=== PATIENT | male | born 1955 | race Caucasian/White ===

== ENCOUNTER 2018-12-17 08:12 | Outpatient (REF) | payer OTHER, SELFPAY ==
[2018-12-17 12:43] LABS: ALT 23 U/L (12-78); AST 19 U/L (15-37); Albumin 3.4 g/dL (3.4-5.0); Alkaline Phosphatase 84 U/L (46-116); Anion Gap 7.7 mmol/L (3-11); BUN 13 mg/dL (7-18); Bilirubin, Total 0.3 mg/dL (0.2-1.0); CO2 31.3 mmol/L (21.0-32.0); CREATININE 0.94 mg/dL (0.70-1.30); Chloride 102 mmol/L (98-107); Glucose 108 mg/dL (70-100); Potassium 4.2 mmol/L (3.5-5.1); Sodium 141 mmol/L (136-145); Total Protein 7.5 g/dL (6.4-8.2)
[2018-12-17 14:29] LABS: Calculated LDL 102; Cholesterol 160 mg/dL (50-200); HDL Cholesterol 50 mg/dL (40-60); Triglyceride 42 mg/dL (30-150)
== END 2018-12-17 08:32 ==
LOC: NCHCN 08:12
PROVIDERS: PCP Nurse Practitioner Family; Visit Provider Nurse Practitioner Family
DX: Z00.00 Encounter for general adult medical examination without abnormal findings (principal); Z13.220 Encounter for screening for lipoid disorders; Z13.228 Encounter for screening for other metabolic disorders
CPT/HCPCS: 80053; 80061; 83721

== ENCOUNTER 2019-05-29 12:32 | Outpatient (REF) | payer OTHER, SELFPAY ==
[2019-06-02 13:11] LABS: Hepatitis C Ab w Rflx HCV PCR Negative (Negative)
== END 2019-05-29 12:52 ==
LOC: NCHCN 12:32
PROVIDERS: PCP Nurse Practitioner Family; Visit Provider Nurse Practitioner Family
DX: Z00.00 Encounter for general adult medical examination without abnormal findings (principal); Z11.59 Encounter for screening for other viral diseases
CPT/HCPCS: 86803

== ENCOUNTER 2019-07-22 15:24 | Observation (INO) | payer OTHER, SELFPAY ==
[2019-07-22] VITALS (10 sets, daily range): BP systolic 118–168; BP diastolic 73–85; PULSE 61–82; RESP 16–22; TEMP 36.1–36.6; O2SAT 95–100
--- NOTE | 2019-07-22 15:43 | ED.GENADUL_ITS ---
Discharge Plan Disposition Patient Disposition: [facility] INPATIENT Condition: Stable Discharge Details Chief Complaint: Abd Prob Clinical Impression: Strangulated femoral hernia Primary Care Provider: Desi Garcia ED Provider: Kevin Ferrer Home Meds and New Rx's Prescriptions: New hydrocodone-acetaminophen 5-325 mg tablet 1 - 2 tab PO Q4H PRN (Reason: pain) Qty: 20 RF: 0 Continued omeprazole 20 mg Capsule,Delayed Release(Dr/Ec) 20 mg PO DAILY RF: 0 albuterol sulfate [ProAir HFA] 90 mcg/actuation Hfa Aerosol Inhaler 2 puff INHALATION PRN PRNRF: 0 fluticasone propion-salmeterol 250-50 mcg/dose Blister With Device 1 inh INHALATION BID PRNRF: 0 ondansetron 4 mg Tablet,Disintegrating 4 mg PO Q6H PRNRF: 0 Medical Decision Making 64 yo male with hx of gerd and per pt 40 years ago had left inguinal hernia repair comes in with chief complaint of left inguinal pain. He was doing heavy lifting yesterday and had pain but this increased today. WEnt to pcp's office who sent him here after noting large inguinal hernia. Denies fevers, chills, testicle pain or dysuria. Has no abodminal tenderness or distention. HAs 3cm mass that's tender without erythema or warmth in left mid inguinal area. Suspect hernia, unable to reduce at bedside. Will obtain labs and obtain imaging and reassess. labs unremarkable, pt has both left femoral and inguinal hernias with femoral being the start of sbo. Spoke with Dr. Corrales who is planning on taking pt to the OR Differential Diagnosis Differential Diagnosis: hernia, incarceration, strangulation Imaging Data Radiologic Study: Attestation: I personally reviewed and interpreted this imaging study as follows: Imaging: CT Scan Radiologist's impression: IMPRESSION: 1. There are dilated loops of fluid-filled small bowel which enter a left femoral hernia. The exiting bowel is contracted in appearance (transition point series 4, image 33). Findings are most consistent with a small-bowel obstruction related to this hernia. There is slight haziness to the fat within the hernia sac with respect to the adjacent inguinal hernia sac fat. This can sometimes be seen with incarceration or strangulation. There is no associated bowel wall thickening at this time. 2. Urinary bladder wall prominence, anteriorly on the left. This can be seen with infection, inflammatory reaction, or malignancy. Urology consult could be considered. 3. Lesion in the liver which does not fulfill the criteria for a simple cyst. MRI, hepatic mass protocol, suggested on a nonemergent basis. 4. Emphysematous changes at the lung bases. Small focus of aneurysmal dilation in the suprarenal abdominal aorta. Fluid containing right inguinal hernia. Fat containing umbilical and left inguinal hernias. Other findings/details as above. Lab Data Lab results reviewed: Yes I reviewed the patient's lab results. HPI General Mode of arrival: ambulatory . Date/Time Provider Initiated Documentation: 07/22/19 15:27 . Limitations to Documentation: no limitations . Information obtained by: patient . History of Present Illness 64 year old M presents to the emergency department with the chief complaint of left groin pain, described as moderate, and it has been constant. No relieving factors improve symptom(s), No exacerbating factors reported . Patient notes no other symptoms.. HPI Narrative: 64 yo male with hx of gerd and per pt 40 years ago had left inguinal hernia repair comes in with chief complaint of left inguinal pain. He was doing heavy lifting yesterday and had pain but this increased today. WEnt to pcp's office who sent him here after noting large inguinal hernia. Denies fevers, chills, testicle pain or dysuria. Has no abodminal tenderness or distention. HAs 3cm mass that's tender without erythema or warmth in left mid inguinal area. Suspect hernia, unable to reduce at bedside. Will obtain labs and obtain imaging and reassess. Related Data Home Medications Medication Instructions Recorded Confirmed albuterol sulfate [ProAir HFA] 2 puff INHALATION PRN PRN 07/22/19 07/22/19 fluticasone propion-salmeterol 1 inh INHALATION BID PRN 07/22/19 07/22/19 hydrocodone-acetaminophen 1 - 2 tab PO Q4H PRN #20 tab 07/22/19 omeprazole 20 mg PO DAILY 07/22/19 07/22/19 ondansetron 4 mg PO Q6H PRN 07/22/19 07/22/19 Previous Rx's Medication Instructions Recorded hydrocodone-acetaminophen 1 - 2 tab PO Q4H PRN #20 tab 07/22/19 Allergies Allergy/AdvReac Type Severity Reaction Status Date / Time Penicillins Allergy Severe Hives Unverified 07/22/19 15:33 codeine AdvReac Mild Nausea Unverified 07/22/19 15:33 tramadol AdvReac Nausea Unverified 07/22/19 15:33 General Stated Complaint: Abd Prob SHARON: 3 Review of Systems All systems reviewed & are unremarkable except as noted in HPI and below Constitutional Constitutional: Denies chills, Denies fever(s) and Denies weakness ENT Ears, Nose, Mouth, and Throat: Denies change in voice Cardiovascular Cardiovascular: Denies chest pain and Denies dyspnea Respiratory Respiratory: Denies cough and Denies dyspnea Gastrointestinal Gastrointestinal: Denies vomiting Musculoskeletal Musculoskeletal: Denies joint swelling Integumentary/Breasts Skin/Breast: Denies rash Neurologic Neurologic: Denies weakness [facility] Medical History (Updated 07/22/19 @ 18:03 by Betsy Corrales MD) Neck fracture (Acute) Tobacco abuse (Inactive) Surgical History (Updated 07/22/19 @ 18:00 by Betsy Corrales MD) H/O thumb surgery (Acute) History of left inguinal hernia repair (Acute) Social History Smoking/Tobacco Use Status: Current every day Tobacco Type: cigarettes Alcohol Intake: current Alcohol Intake frequency: a few times a week Drug use: Daily Substance use type: marijuana Do you feel safe at home: Yes Do you feel safe in your relationship?: Yes Exam Const General: no acute distress Orientation: alert HENMT Head: normal to inspection Ears: external ears normal General nose exam: external nose normal Mouth: moist mucous membranes Eyes General: appearance normal, both eyes and all related structures Neck Neck: normal visual inspection Resp Effort & Inspection: normal respiratory effort and able to speak in complete sentences Cardio Rate: regular rate GI Palpation: soft Penis: normal penis Scrotum: scrotum normal and no scrotal swelling Testes: normal Skin General skin exam: no rashes or lesions noted Neuro General: alert and oriented x3 Extrem General: normal to inspection Psych Mental Status: mental status grossly normal Course Vital Signs Vital signs: Vital Signs Temperature 36.4 C L 07/22/19 15:28 Pulse 61 07/22/19 15:28 Respiratory Rate 18 07/22/19 15:28 Blood Pressure 118/73 07/22/19 15:28 Pulse Oximetry 98 07/22/19 15:28 Temperature 36.4 C L 07/22/19 15:28 Pulse 61 07/22/19 15:28 Respiratory Rate 18 07/22/19 15:28 Respiratory Effort Non-Labored 07/22/19 15:31 Blood Pressure 118/73 07/22/19 15:28 Blood Pressure Position Sitting 07/22/19 15:28 Pulse Oximetry 98 07/22/19 15:28 Oxygen Delivery Method Room Air 07/22/19 15:28 Oxygen Flow Rate 0 07/22/19 15:28 Pain Level 10 07/22/19 15:34
[2019-07-22] MEDS: HYDROmorphone 2 MG/ML VIAL 1 MG IVP (15:45)
[2019-07-22 15:50] LABS: Abs Immature Grans 0.02 k/cumm (0.0-0.09); Absolute Basophil Count 0.03 k/cumm (0.0-0.2); Absolute Eosinophil Count 0.16 k/cumm (0.0-0.7); Absolute Lymphocyte Count 1.44 k/cumm (1.2-3.4); Absolute Monocyte Count 0.49 k/cumm (0.11-0.7); Absolute Neutrophil Count 6.37 k/cumm (1.2-6.7); Basophils % 0.4; Eosinophils % 1.9; HCT 45.1 % (40.0-50.0); HGB 15.3 g/dL (13.5-17.5); Immature Grans % 0.2 %; Lymphocytes % 16.9; Mean Corp. HGB Concentration 33.9 g/dL (32.0-36.0); Mean Corpuscular Hemoglobin 31.5 pg (27.0-33.0); Mean Corpuscular Volume 92.8 fL (80-95); Mean Platelet Volume 9.4 fL (8.0-11.0); Monocytes % 5.8; Neutrophils % 74.8; Platelet Count 266 x1000/uL (130-400); RBC 4.86 m/cumm (4.50-6.00); RBC Distribution Width 12.3 % (11.8-14.1); White Blood Cell Count 8.51 k/cumm (4.4-10.8)
[2019-07-22 15:51] LABS: BE (Venous) 6.2 mmol/L (-3-3); HCO3 (Venous) 31 mmol/L (22-28); O2 Sat (Venous) 44 % (70-80); TCO2 (Venous) 27 mmol/L (22-29); pCO2 (Venous) 48 mm/Hg (34-47); pH (Venous) 7.42 (7.35-7.45); pO2 (Venous) 27 mm/Hg (28-44)
[2019-07-22] MEDS: Normal Saline Flush 10 ML SYR IVP (15:51)
[2019-07-22] MEDS: Normal Saline 1,000 ML 1000 ML IV (15:51)
[2019-07-22 16:01] LABS: Lactate 0.9 mmol/L (0.6-1.4)
--- NOTE | 2019-07-22 16:06 | DI.CT_ITS ---
EXAM: CT ABDOMEN PELVIS WO CLINICAL HISTORY: left inguinal mass, ?hernia TECHNIQUE: Noncontrast COMPARISON: No exams were available for comparison FINDINGS: The stomach is somewhat distended with food and fluid. There are dilated loops of mid small bowel. There is a left femoral hernia. A loop of bowel enters the hernia, causing obstruction. There is s ome stranding in the fat within the hernia which could indicate an element of incarceration. The bow el distal to this area is reduced in caliber. There is no evidence of perforation, bowel wall thicke milly or abscess. There is no free fluid. There is also fat within the left inguinal canal. There is a fatty containing umbilical hernia. The colon is unremarkable. There is a question of mild wall thickening of the urinary bladder. Prostate is normal in size. The heart size is normal. Emphysematous changes are noted at the lung bases. There is an area of lo w attenuation in the left lobe of the liver near the falciform ligament which could represent focal f at. The gallbladder, spleen, pancreas, adrenals and kidneys are unremarkable. The aorta is tortuous and shows mild calcification. There is no significant luminal narrowing of the aorta or iliac kate bhargav. There is a small hiatal hernia. There is a small focal area of dilatation of the proximal aor ta, it is below the level of the renal arteries measuring 2.5 cm. IMPRESSION: Left femoral hernia containing a loop of small bowel which may be incarcerated. There is evidence of obstruction with moderate dilatation small bowel without evidence of wall thickening.
[2019-07-22 16:11] LABS: PTT Activated 26.4 sec (21.0-31.4); Prothrombin Time 9.9 sec (9.3-11.0)
[2019-07-22 16:24] LABS: Bilirubin, Direct 0.16 mg/dL (0.00-0.20); Bilirubin, Total 0.6 mg/dL (0.2-1.0); Lipase 118 U/L (73-393); Magnesium 1.8 mg/dL (1.8-2.4)
[2019-07-22] MEDS: Ondansetron 4 MG/2 ML VIAL (16:43)
--- NOTE | 2019-07-22 16:49 | DI.VRAD_ITS ---
Addendum created by Hanane Dixon MD on 07/22/2019 7:31:44 PM EST Upon further review, there is wall prominence to the rectum on series 2, image 72. This should be correlated with any concern for proctitis or other abnormalities in this region.Findings were discussed with Kevin Ferrer at 07/22/2019 7:31 PM EST. Initial report created on 07/22/2019 4:49:35 PM EST PROCEDURE INFORMATION: Exam: CT Abdomen And Pelvis Without Contrast Exam date and time: 07/22/2019 4:03 PM Age: 64 years old Clinical indication: Mass, lump, or swelling; Llq; Patient HX: Left inguinal mass, ? hernia TECHNIQUE: Imaging protocol: Computed tomography of the abdomen and pelvis without contrast. Radiation optimization: All CT scans at this facility use at least one of these dose optimization techniques: automated exposure control; mA and/or kV adjustment per patient size (includes targeted exams where dose is matched to clinical indication); or iterative reconstruction. COMPARISON: No relevant prior studies available. FINDINGS: Lungs: Emphysematous changes at the lung bases. Mediastinum: Small hiatal hernia. Liver: 1.4 cm 27 Hounsfield unit hypodensity, anterior liver. This does not fulfill the criteria for a simple cyst. Gallbladder and bile ducts: Normal. No calcified stones. No ductal dilation. Pancreas: Some fatty replacement. Spleen: Calcification in the spleen suggestive of old granulomatous disease. Adrenals: Bulky appearance to the adrenal glands. Kidneys and ureters: Normal. No hydronephrosis. Stomach and bowel: Heterogeneous contents in the stomach, favored to be related to ingested products. See below. Appendix: Not clearly seen. Intraperitoneal space: No free air. Vasculature: Vascular calcifications. Tortuous aorta with calcified and noncalcified plaque. There is a small focus of aneurysmal dilation in the suprarenal abdominal aorta on series 4, image 44, 2.5 cm. Lymph nodes: Unremarkable. No enlarged lymph nodes. Bladder: Urinary bladder wall prominence, anteriorly on the left. This can be seen with infection, inflammatory reaction, or malignancy. Urology consult could be considered. Reproductive: There is the suggestion of incompletely imaged bilateral hydroceles. Bones/joints: Skeletal degenerative changes.. No acute fracture. Soft tissues: Fat containing umbilical and left inguinal hernias. Fluid containing right inguinal hernia. There are dilated loops of fluid-filled small bowel which enter a left femoral hernia. The exiting bowel is contracted in appearance (transition point series 4, image 33). Findings are most consistent with a small-bowel obstruction related to this hernia. There is slight haziness to the fat within the hernia sac with respect to the adjacent inguinal hernia sac fat. This can sometimes be seen with incarceration or strangulation. There is no associated bowel wall thickening at this time. IMPRESSION: 1. There are dilated loops of fluid-filled small bowel which enter a left femoral hernia. The exiting bowel is contracted in appearance (transition point series 4, image 33). Findings are most consistent with a small-bowel obstruction related to this hernia. There is slight haziness to the fat within the hernia sac with respect to the adjacent inguinal hernia sac fat. This can sometimes be seen with incarceration or strangulation. There is no associated bowel wall thickening at this time. 2. Urinary bladder wall prominence, anteriorly on the left. This can be seen with infection, inflammatory reaction, or malignancy. Urology consult could be considered. 3. Lesion in the liver which does not fulfill the criteria for a simple cyst. MRI, hepatic mass protocol, suggested on a nonemergent basis. 4. Emphysematous changes at the lung bases. Small focus of aneurysmal dilation in the suprarenal abdominal aorta. Fluid containing right inguinal hernia. Fat containing umbilical and left inguinal hernias. Other findings/details as above. THIS REPORT CONTAINS FINDINGS THAT MAY BE CRITICAL TO PATIENT CARE. The findings were verbally communicated via telephone conference with Kevin Ferrer at 4:48 PM EST on 07/22/2019. The findings were acknowledged and understood. Dictated and Authenticated by: Hanane Dixon MD. Ordering:ANIYAH Brown MD
[2019-07-22] MEDS: Albuterol/Ipratropium 3 ML UPD VIAL UPD (17:30)
--- NOTE | 2019-07-22 17:57 | W.PM.HP.N ---
Date of service: 07/22/19 Time of Service: 17:57 Assessment and Plan Assessment and plan (1) Inguinal hernia of left side with obstruction: Status: Acute Assessment and plan: We discussed left groin hernia repair. This may be inguinal or femoral although the surgical approach is the same. The procedure was described including the risk of infection, bleeding, recurrence, chronic pain or numbness. If the bowel is compromised, a small bowel resection may be needed. The patient was advised not to lift more than 15 pounds for one month postop. The patient agrees to proceed. History of Present Illness Narrative: This patient presented today with a tender lump in his left groin. He was moving some wood yesterday and felt burning in the region. This worsened today and he presented to the emergency department. He also complains of nausea but no vomiting. He did have normal bowel movements today. Examination and CT scan of abdomen pelvis were consistent with an incarcerated left groin hernia. The patient had a previous left inguinal hernia repair about 40 years ago and is uncertain as to whether or not mesh was used. He has had no fevers and white blood cell count is normal. Review of Systems All systems reviewed & are unremarkable except as noted in HPI and below PFSH Medical History (Updated 07/22/19 @ 18:03 by Betsy Corrales MD) Neck fracture (Acute) Tobacco abuse (Inactive) Surgical History (Updated 07/22/19 @ 18:00 by Betsy Corrales MD) H/O thumb surgery (Acute) History of left inguinal hernia repair (Acute) Social History Smoking/Tobacco Use Status: Current every day Tobacco Type: cigarettes Alcohol Intake: current Alcohol Intake frequency: a few times a week Drug use: Daily Substance use type: marijuana Do you feel safe at home: Yes Do you feel safe in your relationship?: Yes Meds Home Medications and Allergies Home Medications Medication Instructions Recorded Confirmed Type albuterol sulfate [ProAir HFA] 2 puff INHALATION PRN PRN 07/22/19 07/22/19 History fluticasone propion-salmeterol 1 inh INHALATION BID PRN 07/22/19 07/22/19 History omeprazole 20 mg PO DAILY 07/22/19 07/22/19 History ondansetron 4 mg PO Q6H PRN 07/22/19 07/22/19 History Allergies Allergy/AdvReac Type Severity Reaction Status Date / Time Penicillins Allergy Severe Hives Unverified 07/22/19 15:33 codeine AdvReac Mild Nausea Unverified 07/22/19 15:33 tramadol AdvReac Nausea Unverified 07/22/19 15:33 Exam Narrative Exam Narrative: Not in acute distress, alert Lungs with decreased breath sounds Heart RRR Abdomen slightly distended but no generalized tenderness Non reducible tender lump in left groin, prior incision present. No significant right inguinal hernia. No skin erythema. Results Labs Result diagrams: 07/22/19 15:35 Labs: Laboratory Results - last 24 hr 07/22/19 07/22/19 07/22/19 15:35 15:35 15:35 WBC 8.51 RBC 4.86 Hgb 15.3 Hct 45.1 MCV 92.8 MCH 31.5 MCHC 33.9 RDW 12.3 Plt Count 266 MPV 9.4 Immature Gran % 0.2 Neutrophils % 74.8 Lymphocytes % 16.9 Monocytes % 5.8 Eosinophils % 1.9 Basophils % 0.4 Absolute Neutrophils 6.37 Absolute Lymphocytes 1.44 Absolute Monocytes 0.49 Absolute Eosinophils 0.16 Absolute Basophils 0.03 PT INR APTT VBG pH VBG pCO2 VBG pO2 VBG HCO3 VBG Total CO2 VBG O2 Saturation VBG Base Excess Lactate 0.9 Magnesium 1.8 Total Bilirubin 0.6 Conjugated Bilirubin 0.16 Lipase 118 07/22/19 07/22/19 15:35 15:35 WBC RBC Hgb Hct MCV MCH MCHC RDW Plt Count MPV Immature Gran % Neutrophils % Lymphocytes % Monocytes % Eosinophils % Basophils % Absolute Neutrophils Absolute Lymphocytes Absolute Monocytes Absolute Eosinophils Absolute Basophils PT 9.9 INR 1.0 APTT 26.4 VBG pH 7.42 VBG pCO2 48 H VBG pO2 27 L VBG HCO3 31 H VBG Total CO2 27 VBG O2 Saturation 44 L VBG Base Excess 6.2 H Lactate Magnesium Total Bilirubin Conjugated Bilirubin Lipase Last Vital Signs Temp 97.5 F L 07/22/19 15:28 Pulse 61 07/22/19 15:28 Resp 18 07/22/19 15:28 BP 118/73 07/22/19 15:28 Pulse Ox 98 07/22/19 15:28
--- NOTE | 2019-07-22 18:06 | PDOC.DSDIS_ITS ---
Discharge Plan Disposition Patient Disposition: HOME Condition: Good Discharge Details Chief Complaint: Abd Prob Clinical Impression: Strangulated femoral hernia Primary Care Provider: Desi Garcia ED Provider: Kevin Ferrer Home Meds and New Rx's Prescriptions: New hydrocodone-acetaminophen 5-325 mg tablet 1 - 2 tab PO Q4H PRN (Reason: pain) Qty: 20 RF: 0 Continued omeprazole 20 mg Capsule,Delayed Release(Dr/Ec) 20 mg PO DAILY RF: 0 albuterol sulfate [ProAir HFA] 90 mcg/actuation Hfa Aerosol Inhaler 2 puff INHALATION PRN PRNRF: 0 fluticasone propion-salmeterol 250-50 mcg/dose Blister With Device 1 inh INHALATION BID PRNRF: 0 ondansetron 4 mg Tablet,Disintegrating 4 mg PO Q6H PRNRF: 0 Discharge Instructions Additional Instructions: The top bandage can be removed tomorrow. The steri strips will usually stick for about a week. When the edges start to curl up, they can be removed. It is okay to shower tomorrow, the water can run over the steri strips Do not swim or soak in a tub for two weeks Call for any concerns including fever, increased pain, vomiting, incision redness or drainage. Do not lift more than 15 pounds for four weeks. Walking and stairs are fine. Do not drive if on narcotic pain meds or if limited by pain. May use Tylenol alternating with ibuprofen for pain control. Ice is also an option. The maximum dose for Tylenol is 4000 mg/day. May use ibuprofen 800 mg every 8 hours as needed. If concerned about constipation, you may use a stool softener or milk of magnesia. Referrals: Betsy Corrales MD [ [facility] STAFF PHYSICIAN] - (Call for a postop appointment in 10-14 days) DS: Diagnosis Discharge Diagnosis (1) Strangulated femoral hernia: Status: Acute
[2019-07-22] MEDS: Lactated Ringers 1,000 ML 80 ML IV (18:07)
[2019-07-22] MEDS: Bupivacaine 0.5% Pres-Free 30 ML VIAL (18:48)
--- NOTE | 2019-07-24 10:37 | ROE_ITS ---
REPORT OF OPERATIVE PROCEDURE DATE OF PROCEDURE July 22, 2019 PREOPERATIVE DIAGNOSIS Incarcerated left groin hernia. POSTOPERATIVE DIAGNOSIS Incarcerated left femoral hernia. PROCEDURE Incarcerated left femoral hernia repair with mesh. SURGEON Betsy Corrales M.D. ANESTHESIA Local and general. INDICATIONS This is a 64-year-old man who noted some burning in his left groin after lifting the day prior to adm ission. He then developed a tender mass in his groin along with some nausea. He presented to the [facility] and was found to have a nonreducible left groin hernia. CT scan of the abdomen and pelvis showed bowel present within it with some mild dilation of the proximal bowel. PROCEDURE DESCRIPTION The patient was placed supine on the operating table and under general anesthetic, he was prepped and draped sterilely. He had a previous left inguinal hernia repair. The medial aspect of the prior inc ision was infiltrated with local anesthetic and opened with a knife. Subcutaneous tissue was divided with cautery down to the external oblique fascia. It was evident that the hernia was protruding below this consistent with a femoral hernia. The hernial sac was dissected free of the surrounding subcuta neous tissue with gentle blunt dissection and cautery. During the dissection, the hernia reduced spon taneously. There had been no evidence of bowel compromise including no significant tissue edema or si gnificantly entrapped bowel. The remaining hernia sac was dissected up to the opening and reduced. A small mesh plug was obtained and the internal leaflets trimmed out. This was inserted into the defect and sutured in with a #2-0 Prolene stitch placed superiorly, inferiorly, and medially. There was goo d hemostasis. The skin was closed with a running #4-0 Monocryl subcuticular stitch. While the patient was waking up pressure was held in the groin as he had significant coughing related to smoking. Ther e was no evidence of recurrence at this time. He tolerated the procedure well and was stable to [facility] cain.
== END 2019-07-22 21:15 | disposition home or self-care (01) ==
LOC: ER 19:23 → MS 19:51
PROVIDERS: Admitting Provider Surgery; Emergency Provider Emergency Medicine; PCP Nurse Practitioner Family; Visit Provider Surgery
PROC: 0YU80JZ Supplement Left Femoral Region with Synthetic Substitute, Open Approach (ICD-10-PCS; CPT 49553; principal; 2019-07-22 17:30)
DX: K41.30 Unilateral femoral hernia, with obstruction, without gangrene, not specified as recurrent (principal)
CPT/HCPCS: 49553; 36415; 82805; 83690; 94640; 96361; 96374; 96375; 99223; 99285; 74176; 82247; 82248; 83605; 83735; 85025; 85610; 85730; C1781; J1100; J1885; J2001; J2250; J2405; J2704; J7620

== ENCOUNTER → 2022-03-20 11:30 | Outpatient (CLI) | payer MEDICARE, MEDICAID, SELFPAY ==
--- NOTE | 2022-03-20 10:30 | DI.CT_ITS ---
Exam(s) CT NECK W EXAM: CT NECK W CLINICAL HISTORY: large neck mass, left, r93.0. TECHNIQUE: Imaging Protocol: Axial computed tomography images with coronal and sagittal reformatted images were created and reviewed CONTRAST MATERIAL: Intravenous: Omnipaque 350 Contrast volume:100 ml contrast COMPARISON: US SOFT TISSUE HEAD OR NECK US from 07/24/2016 CR CHEST 2 VIEWS PA,LAT from 07/24/2016 FINDINGS: There is a large ill-defined enhancing mass on the left side of the neck extending from the level of the inferior aspect of the parotid gland inferiorly to the level of the angle of the mandible. It ap pears solid and has multiple low-density lesions within it. It could originate from the parotid glan d or could represent confluent camila mass. It measures roughly 5.3 cm AP by 5.1 cm transverse by 7 c m cephalo caudad. There are enlarged lymph nodes seen at the inferior margin of the mass. No right- sided lymph nodes are seen. Right parotid,submandibular/thyroid gland: Normal. Carotids: No significant stenosis or dissection.. Soft tissues: The floor the mouth is unremarkable. The epiglottis and vocal cords are within normal limits. Lungs: Severe emphysematous changes with large apical bulla. Bones: Degenerative changes of the cervical spine. Visualized portions of the brain and orbits: Unremarkable. Sinuses and mastoids: Prominent chronic ethmoid and maxillary sinus disease. nasal polyps. Mastoid air cells are clear. IMPRESSION: Ill-defined solid mass in the left side of the neck may arise from the parotid gland or represent a c onfluent camila mass. Findings are suspicious for malignancy such as adenoid cystic carcinoma or mucoe pidermoid carcinoma. Infectious etiology is less likely. RADIATION DOSE DELIVERED: 552.35mGy.cm Total DLP DATA REPOSITORY: All CT scans at this facility are submitted to the National Radiology Data Registry (NRDR) Dose Index Registry (DIR) with the [employer] [place] [employer] (ACR). RADIATION OPTIMIZATION: All CT scans at this facility use at least one of these dose optimization te chniques: automated exposure control; mA and/or kV adjustment per patient size (includes targeted exa ms where dose is matched to clinical indication); or iterative reconstruction.
[2022-03-20 11:27] LABS: BUN 15 mg/dL (7-18); CREATININE 1.1 mg/dL (0.70-1.30); Calcium 9.6 mg/dL (8.5-10.1); Chloride 98 mmol/L (98-107); Estimated GFR 74.04 (mL/min/1.73m2); Glucose 109 mg/dL (74-106); Potassium 4.6 mmol/L (3.5-5.1); Sodium 137 mmol/L (136-145)
[2022-03-20] MEDS: Omnipaque 350 MG/ML 500 ML BTL-Imaging package IV (12:01)
[2022-03-20] MEDS: Normal Saline Flush 10 ML SYR IVP (12:04)
== END ==
PROVIDERS: PCP Nurse Practitioner Family; Visit Provider Physician Assistant
DX: R22.1 Localized swelling, mass and lump, neck (principal)
CPT/HCPCS: 36415; 70491; 80048

== ENCOUNTER 2022-03-22 11:52 | Outpatient (REF) | payer MEDICARE, MEDICAID, SELFPAY ==
--- NOTE | 2022-03-22 15:00 | PAPNONF_PTH ---
PATIENT: Manoj Kenney LOC: [facility] U#:[id number] AGE/SX: 67/M ROOM: RE03/22/[address]: Addy Martin MD : [id number] BED: DIS: 03/22/2022 SPEC #: [id number] RECD: 03/23/22 12:56 STATUS: SCARLETT RESidney #: [id number] MICHELET: 03/22/22 15:[address]: Addy Martin DEPT: [facility] Cytology RECD BY: Jesusita Hernandez ENTERED: 03/23/22 12:57 SP TYPE: WILVER SAMAYOA DR: Desi Garcia Tissues: 1 - BODY FLUID CYTO-FINE NEEDLE ASPIRATE-[facility] Procedures: BODY FLUID CYTO-FINE NEEDLE ASPIRATE[facility] Comments: [id number]
== END 2022-03-22 11:53 | disposition home or self-care (01) ==
LOC: LBN 11:52
PROVIDERS: PCP Nurse Practitioner Family; Visit Provider Otolaryngology
DX: R22.1 Localized swelling, mass and lump, neck (principal); Z87.891 Personal history of nicotine dependence; R89.6 Abnormal cytological findings in specimens from other organs, systems and tissues
CPT/HCPCS: 88104

== ENCOUNTER 2022-05-01 02:37 | Outpatient (CLI) | payer MEDICARE, MEDICAID, SELFPAY ==
[2022-05-01 11:31] LABS: Estimated GFR 83.01 (mL/min/1.73m2)
== END 2022-05-01 02:38 | disposition home or self-care (01) ==
LOC: LBO 02:37
PROVIDERS: PCP Nurse Practitioner Family; Visit Provider Physician Assistant
DX: R22.1 Localized swelling, mass and lump, neck (principal)
CPT/HCPCS: 36415; 82565

== ENCOUNTER 2022-05-29 13:58 | Emergency (ER) | payer MEDICARE, MEDICAID, SELFPAY ==
[2022-05-29] VITALS (29 sets, daily range): BP systolic 75–150; BP diastolic 48–109; PULSE 50–94; RESP 13–28; TEMP 36.4; O2SAT 91–100
--- NOTE | 2022-05-29 14:00 | RT.EKG_ITS ---
APPROVED REPORT Exam: Resting ECG Reason for Exam: SOB Patient Location: E HR:55 bpm ECG Measurements Heart Rate 55 AXIS [place] 160 P 87 QRSd 96 QRS 84 QT 423 T 68 QTc 406 Conclusion Sinus bradycardia...rate< 60 ST elevation suggests acute pericarditis...ST >0.10mV, ant/lat/inf
--- NOTE | 2022-05-29 14:00 | DI.CT_ITS ---
Exam(s) CT NECK W EXAM: CT NECK W CLINICAL HISTORY: laryngeal mass, shortness of breath. TECHNIQUE: Imaging Protocol: Axial computed tomography images with coronal and sagittal reformatted images were created and reviewed CONTRAST MATERIAL: Intravenous: Omnipaque 350 Contrast volume:100 ml contrast COMPARISON: CT CT NECK W from 03/20/[address] CHEST PE CTA from 05/29/2022 FINDINGS: Right parotid parotids/submandibular/thyroid gland: Normal. Large invasive appearing mass is again noted on the left side of the neck which is increased in size compared with the previous exam which now measures roughly 9 cm cephalo caudad by 8 cm AP x 6 to 7 cm transverse. There is some extension and slight mass effect onto the airway at the level of the epig lottis but no significant airway narrowing. It extends from the level of the left mandibular condyl e inferior to the level of the hyoid. Lymphadenopathy: Abnormally enlarged lymph nodes seen inferior to the large left-sided neck mass, so me of which have a necrotic appearance. These have increased in size when compared the previous exam . Carotids/Jugular: Left carotid and jugular vein are not well seen in the region of the mass but contr ast is visualized proximally and distally. Soft tissues: The floor the mouth is unremarkable. The epiglottis and vocal cords are within normal limits. Lungs: Severe emphysematous changes in the lung apices Bones: Degenerative changes of the cervical spine. Visualized portions of the brain and orbits: Unremarkable. Sinuses and mastoids: Mucous retention at floor of maxillary sinuses, left greater than right. IMPRESSION: Increased size of large left-sided neck mass. Minimal mass effect upon the airway. The left caroti d artery and left jugular vein are attenuated by the mass but do not appear obstructed. Findings called to Dr. Shan Bergman of the emergency department. RADIATION DOSE DELIVERED: Total DLP DATA REPOSITORY: All CT scans at this facility are submitted to the National Radiology Data Registry (NRDR) Dose Index Registry (DIR) with the [employer] ([employer]). RADIATION OPTIMIZATION: All CT scans at this facility use at least one of these dose optimization te chniques: automated exposure control; mA and/or kV adjustment per patient size (includes targeted exa ms where dose is matched to clinical indication); or iterative reconstruction.
--- NOTE | 2022-05-29 14:00 | DI.CT_ITS ---
Exam(s) CT CHEST PE CTA EXAM: CT CHEST PE CTA CLINICAL HISTORY: laryngeal mass, shortness of breath sudden syncop. TECHNIQUE: Imaging Protocol: Axial CT angiography was performed with multi-slice acquisition and mu lti-planar reconstructions as well as axial, coronal and sagittal MIP reconstructions. CONTRAST MATERIAL: Intravenous: Omnipaque 350 Contrast volume:100 ml COMPARISON: CR CHEST 2 VIEWS PA,LAT from 07/24/[address] ABDOMEN PELVIS WO from 07/22/[address] NECK W from 03/20/2022 FINDINGS: Pulmonary Arteries: No evidence of filling defect to suggest pulmonary emboli. Tracheobronchial tree: Patent where visualized. Mediastinum and Kaya: No dominant adenopathy or fluid collection. Pulmonary parenchyma: No consolidation or dominant measurable mass. Severe emphysematous changes with large bullae in the upper lobes. Interlobular septal thickening and honeycombing greater at the feng g bases. Pleura: No effusion or pneumothorax. Heart: The heart is not dilated. Mild coronary artery calcifications are seen. Aorta: Thoracic aorta non-dilated. No aneurysm. No dissection. Aberrant right subclavian artery. Upper abdomen: Unremarkable. Bones: Stable mild T5 compression fracture. IMPRESSION: Severe emphysematous changes. Changes of pulmonary fibrosis. No evidence of pulmonary emboli. Findings called to Dr. Shan Bergman of the emergency department. RADIATION DOSE DELIVERED: 1204.36 mGy.cm Total DLP DATA REPOSITORY: All CT scans at this facility are submitted to the National Radiology Data Registry (NRDR) Dose Index Registry (DIR) with the [employer] (ACR). RADIATION OPTIMIZATION: All CT scans at this facility use at least one of these dose optimization te chniques: automated exposure control; mA and/or kV adjustment per patient size (includes targeted exa ms where dose is matched to clinical indication); or iterative reconstruction.
--- NOTE | 2022-05-29 14:12 | NUR.NOTE ---
Nursing Note: difficulty obtaining ekg, blood pressure, and IV access due to patients restlessness.
[2022-05-29 14:22] LABS: Abs Immature Grans 0.02 10^3/uL (0.0-0.06); Absolute Basophil Count 0.05 10^3/uL (0.0-0.2); Absolute Eosinophil Count 0.39 10^3/uL (0.0-0.7); Absolute Lymphocyte Count 1.74 10^3/uL (1.2-3.4); Absolute Neutrophil Count 6.71 10^3/uL (1.2-6.7); Basophils % 0.5; HCT 40.5 % (40.0-50.0); HGB 13.3 g/dL (13.5-17.5); Immature Grans % 0.2; Lymphocytes % 17.7; MCH 30.3 pg (27.0-33.0); MCHC 32.8 % (32.0-36.0); MCV 92 fL (80-95); MPV 9.4 fL (8.0-11.0); Monocytes % 9.2; Neutrophils % 68.4; Platelet Count 273 10^3/uL (130-400); RBC 4.39 10^6/uL (4.36-5.78); RDW 11.4 % (11.8-14.1); RDW-SD 39.1 fL; WBC 9.81 10^3/uL (4.4-10.8)
[2022-05-29] MEDS: methylPREDNISolone SUCC 125 MG VIAL IVP (14:27)
[2022-05-29] MEDS: LORazepam 2 MG/ML VIAL 0.5 MG IVP (14:33)
[2022-05-29 14:43] LABS: ALT 28 U/L (16-63); AST 17 U/L (15-37); Albumin 3.6 g/dL (3.4-5.0); Alkaline Phosphatase 79 U/L (46-116); Anion Gap 9.1 mmol/L (3-11); BUN 25 mg/dL (7-18); Bilirubin, Total 0.5 mg/dL (0.2-1.0); CO2 28.9 mmol/L (21.0-32.0); CREATININE 1.4 mg/dL (0.70-1.30); Calcium 10.9 mg/dL (8.5-10.1); Chloride 100 mmol/L (98-107); Estimated GFR 55.43 (mL/min/1.73m2); Glucose 114 mg/dL (74-106); Magnesium 1.9 mg/dL (1.8-2.4); NT-proBNP 54 pg/mL (<300); Sodium 138 mmol/L (136-145); Total Protein 8.1 g/dL (6.4-8.2); Troponin I < 50 ng/L (<or=60)
[2022-05-29 14:44] LABS: Source Nasal/Nares
[2022-05-29] MEDS: EPINEPHrine 10 MG/10 ML ML (14:57)
[2022-05-29 15:21] LABS: COVID-19 PCR Negative (Negative)
--- NOTE | 2022-05-29 15:46 | W.ED.GENAD ---
Discharge Plan Disposition Patient Disposition: Against Medical Advise Condition: Serious Discharge Details Clinical Impression: Mass of neck, COPD exacerbation, Syncope Primary Care Provider: Maribeth White ED Provider: Shan Bergman Home Meds and New Rx's Prescriptions: New prednisone 20 mg tablet 40 mg PO DAILY Qty: 8 0RF albuterol sulfate 2.5 mg /3 mL (0.083 %) solution for nebulization 2.5 mg inhalation Q4H PRNQty: 90 0RF Continued Advil Dual Action 125-250 mg tablet 2 tab PO HS PRN acetylcysteine [NAC] 600 mg capsule 600 mg PO BID Qty: 60 12RF Advair HFA 115-21 mcg/actuation HFA aerosol inhaler 2 puff inhalation BID Qty: 12 12RF Rx Instructions: administer with spacer Spiriva Respimat 2.5 mcg/actuation mist 2 puff inhalation DAILY albuterol sulfate 90 mcg/actuation HFA aerosol inhaler 2 puff INHALATION PRN PRN (Reason: shortness of breath or wheezing) Qty: 6.7 0RF Discharge Instructions Instructions: Against Medical Advice (ED) Additional Instructions: Please follow-up with your motorcycle technician, primary care physician, and surgical team. You are leaving AGAINST MEDICAL ADVICE and understand you may have life-threatening or lifestyle modifying disease that would go untreated at home. Return to the emergency department at any time for further treatment and work-up as recommended. Referrals: Maribeth White NP [Primary Care Provider] - Joy Pineda MD [ [facility] STAFF PHYSICIAN] - Medical Decision Making 67-year-old male with history of COPD, neck mass, here with respiratory distress, sent from pulmonary clinic where he had syncopal episode after episode of respiratory distress. He apparently had similar yesterday. Patient is quite anxious. He saturating well on arrival but breathing seems labored and rhonchorous. Concern for upper airway obstruction versus COPD exacerbation. Consider also acute pulmonary embolism. Patient was given lidocaine neb followed by albuterol neb in attempt to reduce any localized swelling and discomfort of the upper airway. Patient did have significant improvement after epinephrine neb was completed he was given Solu-Medrol [address] of the chest was reviewed and interpreted by radiology: No pulmonary embolism, emphysematous changes. CT of the neck was interpreted by radiology: Left neck mass increased in size from prior CT with slight deviation of trachea but with no obstruction. EKG was reviewed interpreted by me: Please see report, sinus bradycardia 55 bpm, computer notes ST elevation suggesting acute pericarditis, I did not appreciate significant ST elevation but did note some NH depression inferiorly. Labs reviewed and nondiagnostic. Plan for admission given syncope, neck mass and severe respiratory distress on arrival. Patient was reassessed and notes he is feeling much better. He saturating well in no respiratory distress at this time. I had a discussion with the patient about my diagnostic/treatment plan. Patient declines plan and wishes to leave against medical advise. I reiterated my concerns to him and explained the risks of leaving prior to completion of workup and treatment. I specifically emphasized the possibility of life-threatening or lifestyle modifying disease that would not be appropriately treated if they leave. He verbalized understanding of my concerns and the potential for life threatening or lifestyle modifying disease. Patient has capacity to make informed decision. I again explained my concerns and urged him to stay for treatment as outlined. Patient continued to refuse. I then discussed potential less ideal alternatives to diagnostic/treatment plan as outlines and patient refused. I recommended that he follow-up with primary care physician JOANNA or return to the Emergency Department at any time for further treatment. Lab Data Lab results reviewed: Yes I reviewed the patient's lab results. Labs: Laboratory Tests Range/Units 05/29/22 05/29/22 05/29/22 14:15 14:15 14:15 WBC (4.4-10.8) 10^3/uL 9.81 RBC (4.36-5.78) 10^6/uL 4.39 Hgb (13.5-17.5) g/dL 13.3 L Hct (40.0-50.0) % 40.5 MCV (80-95) fL 92 MCH (27.0-33.0) pg 30.3 MCHC (32.0-36.0) % 32.8 RDW (11.8-14.1) % 11.4 L Plt Count (130-400) 10^3/uL 273 MPV (8.0-11.0) fL 9.4 Immature Gran % 0.2 Neutrophils % 68.4 Lymphocytes % 17.7 Monocytes % 9.2 Eosinophils % 4.0 Basophils % 0.5 Nucleated RBC % (0.0-0.3) % 0.0 Absolute Neutrophils (1.2-6.7) 10^3/uL 6.71 H Absolute Lymphocytes (1.2-3.4) 10^3/uL 1.74 Absolute Monocytes (0.1-0.8) 10^3/uL 0.90 H Absolute Eosinophils (0.0-0.7) 10^3/uL 0.39 Absolute Basophils (0.0-0.2) 10^3/uL 0.05 Sodium (136-145) mmol/L 138 Cancelled Potassium (3.5-5.1) mmol/L 4.0 Cancelled Chloride (98-107) mmol/L 100 Cancelled Carbon Dioxide (21.0-32.0) mmol/L 28.9 Cancelled Anion Gap (3-11) mmol/L 9.1 Cancelled BUN (7-18) mg/dL 25 H Cancelled Creatinine (0.70-1.30) mg/dL 1.4 H Cancelled Est GFR (CKD-EPI 2020) (mL/min/1.73m2) 55.43 Cancelled Glucose (74-106) mg/dL 114 H Cancelled Calcium (8.5-10.1) mg/dL 10.9 H Cancelled Magnesium (1.8-2.4) mg/dL 1.9 Total Bilirubin (0.2-1.0) mg/dL 0.5 Cancelled AST (15-37) U/L 17 Cancelled ALT (16-63) U/L 28 Cancelled Alkaline Phosphatase (46-116) U/L 79 Cancelled Troponin I (<or=60) ng/L < 50 NT-Pro-B Natriuret Pep (<300) pg/mL 54 Total Protein (6.4-8.2) g/dL 8.1 Cancelled Albumin (3.4-5.0) g/dL 3.6 Cancelled COVID-19 Source SARS-CoV-2 (PCR) (Negative) Range/Units 05/29/22 14:41 WBC (4.4-10.8) 10^3/uL RBC (4.36-5.78) 10^6/uL Hgb (13.5-17.5) g/dL Hct (40.0-50.0) % MCV (80-95) fL MCH (27.0-33.0) pg MCHC (32.0-36.0) % RDW (11.8-14.1) % Plt Count (130-400) 10^3/uL MPV (8.0-11.0) fL Immature Gran % Neutrophils % Lymphocytes % Monocytes % Eosinophils % Basophils % Nucleated RBC % (0.0-0.3) % Absolute Neutrophils (1.2-6.7) 10^3/uL Absolute Lymphocytes (1.2-3.4) 10^3/uL Absolute Monocytes (0.1-0.8) 10^3/uL Absolute Eosinophils (0.0-0.7) 10^3/uL Absolute Basophils (0.0-0.2) 10^3/uL Sodium (136-145) mmol/L Potassium (3.5-5.1) mmol/L Chloride (98-107) mmol/L Carbon Dioxide (21.0-32.0) mmol/L Anion Gap (3-11) mmol/L BUN (7-18) mg/dL Creatinine (0.70-1.30) mg/dL Est GFR (CKD-EPI 2020) (mL/min/1.73m2) Glucose (74-106) mg/dL Calcium (8.5-10.1) mg/dL Magnesium (1.8-2.4) mg/dL Total Bilirubin (0.2-1.0) mg/dL AST (15-37) U/L ALT (16-63) U/L Alkaline Phosphatase (46-116) U/L Troponin I (<or=60) ng/L NT-Pro-B Natriuret Pep (<300) pg/mL Total Protein (6.4-8.2) g/dL Albumin (3.4-5.0) g/dL COVID-19 Source Nasal/Nares SARS-CoV-2 (PCR) (Negative) Negative Sign Out No HPI General Mode of arrival: ambulatory. Date/Time Provider Initiated Documentation: 05/29/22 14:08. Limitations to Documentation: no limitations. Information obtained by: patient and EMS. HPI Narrative: 67-year-old male presents with EMS with respiratory distress. History and review of systems limited by acuity of condition. Patient was at pulmonary clinic for preop clearance for neck mass. He has a history of COPD. During visit he started to have difficulty breathing after pulmonary function testing and then had brief loss of consciousness. Patient regained consciousness and continues to have difficulty breathing. Patient has associated vomiting. He denies associated chest pain. Related Data Home Medications Medication Instructions Recorded Confirmed acetylcysteine 600 mg capsule (NAC) 600 mg PO BID #60 caps 05/29/22 05/29/22 albuterol sulfate 2.5 mg/3 mL 2.5 mg (3 mL) inhalation Q4H PRN 05/29/22 (0.083 %) solution for nebulization #90 mL albuterol sulfate 90 mcg/actuation 2 puff inhalation PRN PRN 05/29/22 aerosol inhaler shortness of breath or wheezing #6.7 grams fluticasone propionate 115 2 puff inhalation BID #12 grams 05/29/22 05/29/22 mcg-salmeterol 21 mcg/actuation HFA inhaler (Advair HFA) ibuprofen 125 mg-acetaminophen 250 2 tab PO HS PRN 05/29/22 05/29/22 mg tablet (Advil Dual Action) prednisone 20 mg tablet 40 mg PO DAILY #8 tabs 05/29/22 tiotropium bromide 2.5 2 puff inhalation DAILY 05/29/22 05/29/22 mcg/actuation mist for inhalation (Spiriva Respimat) Previous Rx's Medication Instructions Recorded acetylcysteine 600 mg capsule (NAC) 600 mg PO BID #60 caps 05/29/22 albuterol sulfate 2.5 mg/3 mL 2.5 mg (3 mL) inhalation Q4H PRN 05/29/22 (0.083 %) solution for nebulization #90 mL albuterol sulfate 90 mcg/actuation 2 puff inhalation PRN PRN 05/29/22 aerosol inhaler shortness of breath or wheezing #6.7 grams fluticasone propionate 115 2 puff inhalation BID #12 grams 05/29/22 mcg-salmeterol 21 mcg/actuation HFA inhaler (Advair HFA) prednisone 20 mg tablet 40 mg PO DAILY #8 tabs 05/29/22 Allergies Allergy/AdvReac Type Severity Reaction Status Date / Time Penicillins Allergy Severe Hives Unverified 05/29/22 12:56 codeine AdvReac Mild Nausea Unverified 05/29/22 12:56 tramadol AdvReac Nausea Unverified 05/29/22 12:56 General Stated Complaint: RespSymp SHARON: 1 Review of Systems Unobtainable due to (Acuity of condition and difficulty responding) Cardiovascular Cardiovascular: Denies chest pain and Reports dyspnea Respiratory Respiratory: Reports cough and Reports dyspnea PFSH All Active Problems (Updated 05/29/22 @ 16:42 by Shan Bergman MD) Mass of neck (Acute) COPD exacerbation (Acute) Syncope (Chronic) Unresponsive episode (Acute) Personal history of nicotine dependence (Acute) 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) Bullae (Acute) Cervical adenopathy (Acute) Nasal polyps (Acute) Mass of neck (Acute) Chronic obstructive pulmonary disease (Chronic) Postop check (Acute) Strangulated femoral hernia (Acute) Medical History Neck fracture Tobacco abuse Surgical History H/O thumb surgery History of laryngoscopy History of left inguinal hernia repair Social History Smoking/Tobacco Use Status: Former Tobacco Use tobacco type: cigarettes Quit Date: 03/25/22 Quit status: considering quitting Second Hand Exposure: Yes Smoking risk assessment performed?: Yes Alcohol Intake: current Alcohol Intake frequency: a few times a week Alcohol type: beer Drug use: Occasionally Substance use type: marijuana Housing: house Do you need help understanding health information?: Rarely Sexually active: Yes Do you think of yourself as: straight/heterosexual Current gender identity: male What is your relationship status?: living with partner Panel score (0-1 are the most socially isolated patients): 1 Urvashi/Nondenominational: No preference Seatbelt use: always 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 Do you feel safe at home: Yes Do you feel safe in your relationship?: Yes Exam HENMT Head: normocephalic Mouth: moist mucous membranes Eyes Conjunctivae: normal conjunctivae Sclera: normal sclerae Neck Neck: trachea midline and supple Resp Effort & Inspection: not able to speak in complete sentences, cough, labored, no stridor, tachypneic and tripod positioning Auscultation: no rales, rhonchi and no wheezes Cardio Rate: tachycardic Rhythm: regular rhythm GI Palpation: soft, not firm, no guarding, no masses, not rigid and nontender Skin General skin exam: no rashes or lesions noted Neuro General: patient alert, patient awake, patient oriented x3 and tone normal Extrem General: no pedal edema, no calf tenderness and no edema Psych Appearance: grossly normal Mental Status: mental status grossly normal Affect: anxious affect Course Vital Signs Vital signs: Vital Signs Temperature 36.4 C L 05/29/22 13:58 Pulse 61 05/29/22 13:58 Respiratory Rate 22 05/29/22 13:58 Blood Pressure 140/109 H 05/29/22 13:58 Pulse Oximetry 100 05/29/22 13:58 Temperature 36.4 C L 05/29/22 13:58 Pulse 66 05/29/22 15:15 Pulse 58 L 05/29/22 15:01 Respiratory Rate 23 05/29/22 15:15 Respiratory Effort Incrsd Work of Breathing 05/29/22 14:17 Respiratory Depth Shallow 05/29/22 14:17 Blood Pressure 112/68 05/29/22 15:15 Blood Pressure Mean 78 05/29/22 15:00 Pulse Oximetry 96 05/29/22 15:15 Oxygen Delivery Method Room Air 05/29/22 15:15 Oxygen Flow Rate 0 05/29/22 15:15 Pain Level 0 05/29/22 13:58 Comment 05/29/22 13:58 Lab/Test Results Lab/Test Results: Laboratory Tests Range/Units 05/29/22 05/29/22 05/29/22 14:15 14:15 14:15 WBC (4.4-10.8) 10^3/uL 9.81 RBC (4.36-5.78) 10^6/uL 4.39 Hgb (13.5-17.5) g/dL 13.3 L Hct (40.0-50.0) % 40.5 MCV (80-95) fL 92 MCH (27.0-33.0) pg 30.3 MCHC (32.0-36.0) % 32.8 RDW (11.8-14.1) % 11.4 L Plt Count (130-400) 10^3/uL 273 MPV (8.0-11.0) fL 9.4 Immature Gran % 0.2 Neutrophils % 68.4 Lymphocytes % 17.7 Monocytes % 9.2 Eosinophils % 4.0 Basophils % 0.5 Nucleated RBC % (0.0-0.3) % 0.0 Absolute Neutrophils (1.2-6.7) 10^3/uL 6.71 H Absolute Lymphocytes (1.2-3.4) 10^3/uL 1.74 Absolute Monocytes (0.1-0.8) 10^3/uL 0.90 H Absolute Eosinophils (0.0-0.7) 10^3/uL 0.39 Absolute Basophils (0.0-0.2) 10^3/uL 0.05 Sodium (136-145) mmol/L 138 Cancelled Potassium (3.5-5.1) mmol/L 4.0 Cancelled Chloride (98-107) mmol/L 100 Cancelled Carbon Dioxide (21.0-32.0) mmol/L 28.9 Cancelled Anion Gap (3-11) mmol/L 9.1 Cancelled BUN (7-18) mg/dL 25 H Cancelled Creatinine (0.70-1.30) mg/dL 1.4 H Cancelled Est GFR (CKD-EPI 2020) (mL/min/1.73m2) 55.43 Cancelled Glucose (74-106) mg/dL 114 H Cancelled Calcium (8.5-10.1) mg/dL 10.9 H Cancelled Magnesium (1.8-2.4) mg/dL 1.9 Total Bilirubin (0.2-1.0) mg/dL 0.5 Cancelled AST (15-37) U/L 17 Cancelled ALT (16-63) U/L 28 Cancelled Alkaline Phosphatase (46-116) U/L 79 Cancelled Troponin I (<or=60) ng/L < 50 NT-Pro-B Natriuret Pep (<300) pg/mL 54 Total Protein (6.4-8.2) g/dL 8.1 Cancelled Albumin (3.4-5.0) g/dL 3.6 Cancelled COVID-19 Source SARS-CoV-2 (PCR) (Negative) Range/Units 05/29/22 14:41 WBC (4.4-10.8) 10^3/uL RBC (4.36-5.78) 10^6/uL Hgb (13.5-17.5) g/dL Hct (40.0-50.0) % MCV (80-95) fL MCH (27.0-33.0) pg MCHC (32.0-36.0) % RDW (11.8-14.1) % Plt Count (130-400) 10^3/uL MPV (8.0-11.0) fL Immature Gran % Neutrophils % Lymphocytes % Monocytes % Eosinophils % Basophils % Nucleated RBC % (0.0-0.3) % Absolute Neutrophils (1.2-6.7) 10^3/uL Absolute Lymphocytes (1.2-3.4) 10^3/uL Absolute Monocytes (0.1-0.8) 10^3/uL Absolute Eosinophils (0.0-0.7) 10^3/uL Absolute Basophils (0.0-0.2) 10^3/uL Sodium (136-145) mmol/L Potassium (3.5-5.1) mmol/L Chloride (98-107) mmol/L Carbon Dioxide (21.0-32.0) mmol/L Anion Gap (3-11) mmol/L BUN (7-18) mg/dL Creatinine (0.70-1.30) mg/dL Est GFR (CKD-EPI 2020) (mL/min/1.73m2) Glucose (74-106) mg/dL Calcium (8.5-10.1) mg/dL Magnesium (1.8-2.4) mg/dL Total Bilirubin (0.2-1.0) mg/dL AST (15-37) U/L ALT (16-63) U/L Alkaline Phosphatase (46-116) U/L Troponin I (<or=60) ng/L NT-Pro-B Natriuret Pep (<300) pg/mL Total Protein (6.4-8.2) g/dL Albumin (3.4-5.0) g/dL COVID-19 Source Nasal/Nares SARS-CoV-2 (PCR) (Negative) Negative Critical Care Time Critical Care Time Critical Care Time: Yes Total Critical Care Time: 40 Attestation: I spent greater than 40 minutes addressing this patient's immediate life threats. Please see MDM section of note. This time was spent engaged in work directly related to the patient's care, exclusive of separate procedures, and failure to initiate these interventions would have likely resulted in clinically significant or life threatening deterioration in the patient's condition.
== END 2022-05-29 17:27 | disposition left against medical advice (07) ==
PROVIDERS: Emergency Provider Student in an Organized Health Care Education/Training Program; PCP Nurse Practitioner Family
DX: J44.1 Chronic obstructive pulmonary disease with (acute) exacerbation (principal); R55 Syncope and collapse; R22.1 Localized swelling, mass and lump, neck; Z53.29 Procedure and treatment not carried out because of patient's decision for other reasons; Z79.51 Long term (current) use of inhaled steroids; Z79.52 Long term (current) use of systemic steroids; Z20.822 Contact with and (suspected) exposure to COVID-19
CPT/HCPCS: 36415; 70491; 71275; 80053; 87635; 93005; 96374; 96375; 99285; 83735; 83880; 84484; 85025; 93010; 94640; J2060; J2930

== ENCOUNTER 2022-06-07 09:13 | Emergency (ER) | payer MEDICARE, MEDICAID, SELFPAY ==
[2022-06-07] VITALS (45 sets, daily range): BP systolic 81–115; BP diastolic 46–83; PULSE 57–92; RESP 13–36; TEMP 37.1; O2SAT 81–100
--- NOTE | 2022-06-07 09:15 | RT.EKG_ITS ---
APPROVED REPORT Exam: Resting ECG Reason for Exam: keeps blacking out Patient Location: E HR:60 bpm ECG Measurements Heart Rate 60 AXIS [place] 145 P 89 QRSd 99 QRS 87 QT 412 T 62 QTc 412 Conclusion Sinus rhythm...normal P axis, V-rate 60- 99 ST elevation suggests acute pericarditis...ST >0.10mV, ant/lat/inf no significant changes from prior
[2022-06-07] MEDS: Dexamethasone 10 MG/ML VIAL IVP ×2 (09:47→17:28)
[2022-06-07] MEDS: Ondansetron 4 MG/2 ML VIAL IVP (09:48)
[2022-06-07] MEDS: Albuterol/Ipratropium 3 ML UPD VIAL UPD (09:48)
[2022-06-07 09:49] LABS: Abs Immature Grans 0.03 10^3/uL (0.0-0.06); Absolute Basophil Count 0.04 10^3/uL (0.0-0.2); Absolute Eosinophil Count 0.25 10^3/uL (0.0-0.7); Absolute Lymphocyte Count 1.75 10^3/uL (1.2-3.4); Absolute Neutrophil Count 8.08 10^3/uL (1.2-6.7); Basophils % 0.4; Eosinophils % 2.3; HCT 43.6 % (40.0-50.0); HGB 14.6 g/dL (13.5-17.5); Immature Grans % 0.3; MCH 30.2 pg (27.0-33.0); MCHC 33.5 % (32.0-36.0); MCV 90 fL (80-95); MPV 9.4 fL (8.0-11.0); Monocytes % 7.3; Neutrophils % 73.7; Platelet Count 333 10^3/uL (130-400); RBC 4.83 10^6/uL (4.36-5.78); RDW 11.4 % (11.8-14.1); WBC 10.96 10^3/uL (4.4-10.8)
--- NOTE | 2022-06-07 09:49 | ED.GENADUL_ITS ---
Discharge Plan Disposition Patient Disposition: Transfer-Acute Inpatient Care Specific Acute Inpt Facility: [facility] Condition: Stable Discharge Details Clinical Impression: Mass of neck, Syncope and collapse Primary Care Provider: Maribeth White ED Provider: Rey Savage Home Meds and New Rx's Prescriptions: No Action Advil Dual Action 125-250 mg tablet 2 tab PO HS PRN acetylcysteine [NAC] 600 mg capsule 600 mg PO BID Qty: 60 12RF Advair HFA 115-21 mcg/actuation HFA aerosol inhaler 2 puff inhalation BID Qty: 12 12RF Rx Instructions: administer with spacer Spiriva Respimat 2.5 mcg/actuation mist 2 puff inhalation DAILY prednisone 20 mg tablet 40 mg PO DAILY Qty: 8 0RF albuterol sulfate 2.5 mg /3 mL (0.083 %) solution for nebulization 2.5 mg inhalation Q4H PRNQty: 90 0RF albuterol sulfate 90 mcg/actuation HFA aerosol inhaler 2 puff INHALATION PRN PRN (Reason: shortness of breath or wheezing) Qty: 6.7 0RF Discharge Data Discharge Date/Time-TO BE ENTERED AT DEPARTURE: 06/07/22 20:46 Medical Decision Making <Meli Martinez NP - Last Filed: 06/10/22 15:12> 67-year-old male presents to the ER chief complaint of passing out, reports up to 4 times daily while walking, denies any chest pain he is shortness of breath. 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 It is pressing on nerves on the left side of his neck. He is agitated upon arrival, diaphoretic, pale and coughing up sputum. Patient was seen here proximately 10 days ago received Solu-Medrol, lidocaine neb and racemic epi neb and ultimately left AGAINST MEDICAL ADVICE with follow- up with pulmonology and [facility] [place] [facility] [place]. He did have a CT at that time. Dr. Ferrer at bedside at my request. Dexamethasone 10 mg IV ordered, DuoNeb ordered, racemic epi neb ordered, labs serial troponins, chest x-ray. CBC shows white blood cell count of 10.96 which is up from 9, absolute neutrophi ls 8.08. 1007: Received critical lab values calcium 12.0 from lab. Sodium potassium within normal limits, BUN 26 creatinine 1.4, GFR 55.43, glucose 125 calcium is 12.0 which is increased from the last visit, initial troponin within normal limits EKG is unchanged. 1014: Patient appears much more calm, he has already received a DuoNeb, he is currently receiving a racemic epi nebulizer, he is leaning in the left lateral recumbent position, vital signs are stable he is currently receiving nebulizer, CTA head and neck with contrast ordered to reevaluate the mass. He was given 10 mg dexamethasone IV. Will plan to consult with [facility] [place] [facility] [place]. 1128: On patient reevaluation, he is sleeping, sat drops to approximately 85 to 88%, does come up to approximately 94% upon awakening, he is complaining of some pain to the left side of his neck, awaiting CT, will order 25 mics of fentanyl. I do suspect that there is some anxiety aspect with this. Patient placed on 2 L simple mask as patient reports that he is having a hard time breathing out of his nose, O2 sat 100% at this time. 1245: [facility] [place] to consult with ENT/ Oncology, they are at capacity. Spoke with Eda. Did discuss possible transfer with patient and family they verbalized understanding and are in agreement with plan. 1404: Spoke with Tierra Ngo with ENT @[facility], she recommends Dexamethasone every 6 hours, she will speak with her attending, get medicine and oncology on the phone and call me back. 1545: [facility] [place] contacted, for update,. They will call back. Care is to be handed off to oncoming provider Sg Savage NP pending reconsultation with [facility] and pending transfer. Discussed patient case in details with him he verbalizes understanding. 1645: Patient signout received from Meli Martinez NP. Please see above note for HPI, physical exam, and plan of care. Patient remained stable with no hypotension and stable vital signs pending [facility] consult. Per signout it was requested that we give Decadron 10 mg every 6 hours so we will give patient additional dose given that it has been at least that amount of time from previous last dose. 1750: Spoke spoke with [facility] hospitalist Dr. Dasilva. He excepted patient but stated no bed availability at this time. Recommended continued every 6 hour Dexamethasone and monitoring of condition with contacting them for any change in symptoms. 1935-received bed confirmation. And arranged transfer. Medical Records Medical records reviewed: Yes I reviewed the patient's medical records. Medical records narrative: Patient was negative for COVID on his last visit. Lab Data Lab results reviewed: Yes I reviewed the patient's lab results. Labs: Laboratory Tests Range/Units 06/07/22 06/07/22 06/07/22 09:40 09:40 12:57 WBC (4.4-10.8) 10^3/uL 10.96 H RBC (4.36-5.78) 10^6/uL 4.83 Hgb (13.5-17.5) g/dL 14.6 Hct (40.0-50.0) % 43.6 MCV (80-95) fL 90 MCH (27.0-33.0) pg 30.2 MCHC (32.0-36.0) % 33.5 RDW (11.8-14.1) % 11.4 L Plt Count (130-400) 10^3/uL 333 MPV (8.0-11.0) fL 9.4 Immature Gran % 0.3 Neutrophils % 73.7 Lymphocytes % 16.0 Monocytes % 7.3 Eosinophils % 2.3 Basophils % 0.4 Nucleated RBC % (0.0-0.3) % 0.0 Absolute Neutrophils (1.2-6.7) 10^3/uL 8.08 H Absolute Lymphocytes (1.2-3.4) 10^3/uL 1.75 Absolute Monocytes (0.1-0.8) 10^3/uL 0.80 Absolute Eosinophils (0.0-0.7) 10^3/uL 0.25 Absolute Basophils (0.0-0.2) 10^3/uL 0.04 Sodium (136-145) mmol/L 136 Potassium (3.5-5.1) mmol/L 4.4 Chloride (98-107) mmol/L 99 Carbon Dioxide (21.0-32.0) mmol/L 28.7 Anion Gap (3-11) mmol/L 8.3 BUN (7-18) mg/dL 26 H Creatinine (0.70-1.30) mg/dL 1.4 H Est GFR (CKD-EPI 2020) (mL/min/1.73m2) 55.43 Glucose (74-106) mg/dL 125 H Calcium (8.5-10.1) mg/dL 12.0 H* Magnesium (1.8-2.4) mg/dL 2.3 Total Bilirubin (0.2-1.0) mg/dL 0.8 AST (15-37) U/L 29 ALT (16-63) U/L 50 Alkaline Phosphatase (46-116) U/L 83 Troponin I (<or=60) ng/L < 50 Total Protein (6.4-8.2) g/dL 8.2 Albumin (3.4-5.0) g/dL 3.7 COVID-19 Source Not Applicable SARS-CoV-2 (PCR) (Negative) Negative Influenza Type A (PCR) (Negative) Negative Influenza Type B (PCR) (Negative) Negative RSV (PCR) (Negative) Negative Sign Out Yes <Rey Savage NP - Last Filed: 06/11/22 09:59> 67-year-old male presents to the ER chief complaint of passing out, reports up to 4 times daily while walking, denies any chest pain he is shortness of breath. 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 It is pressing on nerves on the left side of his neck. He is agitated upon arrival, diaphoretic, pale and coughing up sputum. Patient was seen here proximately 10 days ago received Solu-Medrol, lidocaine neb and racemic epi neb and ultimately left AGAINST MEDICAL ADVICE with follow- up with pulmonology and [facility] [place] [facility] [place]. He did have a CT at that time. Dr. Ferrer at bedside at my request. Dexamethasone 10 mg IV ordered, DuoNeb ordered, racemic epi neb ordered, labs serial troponins, chest x-ray. CBC shows white blood cell count of 10.96 which is up from 9, absolute neutrophils 8.08. 1007: Received critical lab values calcium 12.0 from lab. Sodium potassium within normal limits, BUN 26 creatinine 1.4, GFR 55.43, glucose 125 calcium is 12.0 which is increased from the last visit, initial troponin within normal limits EKG is unchanged. 1014: Patient appears much more calm, he has already received a DuoNeb, he is currently receiving a racemic epi nebulizer, he is leaning in the left lateral r ecumbent position, vital signs are stable he is currently receiving nebulizer, CTA head and neck with contrast ordered to reevaluate the mass. He was given 10 mg dexamethasone IV. Will plan to consult with [facility] [place] [facility] [place] 1128: On patient reevaluation, he is sleeping, sat drops to approximately 85 to 88%, does come up to approximately 94% upon awakening, he is complaining of some pain to the left side of his neck, awaiting CT, will order 25 mics of fentanyl. I do suspect that there is some anxiety aspect with this. Patient placed on 2 L simple mask as patient reports that he is having a hard time breathing out of his nose, O2 sat 100% at this time. 1245: [facility] [place] to consult with ENT/ Oncology, they are at capacity. Spoke with Eda. Did discuss possible transfer with patient and family they verbalized understanding and are in agreement with plan. 1404: Spoke with Tierra Ngo with ENT @[facility], she recommends Dexamethasone every 6 hours, she will speak with her attending, get medicine and oncology on the phone and call me back. 1545: [facility] [place] contacted, for update,. They will call back. Care is to be handed off to oncoming provider Sg Savage NP pending reconsultation with [facility] and pending transfer. Discussed patient case in details with him he verbalizes understanding. 1645: Patient signout received from Meli Martinez NP. Please see above note for HPI, physical exam, and plan of care. Patient remained stable with no hypotension and stable vital signs pending [facility] consult. Per signout it was requested that we give Decadron 10 mg every 6 hours so we will give patient additional dose given that it has been at least that amount of time from previous last dose. 1750: Spoke spoke with [facility] hospitalist Dr. Dasilva. He accepted patient but stated no bed availability at this time. Recommended continued every 6 hour Dexamethasone and monitoring of condition with contacting them for any change in symptoms. 1935-received bed confirmation. And arranged transfer. Patient remained stable throughout emergency department stay and only needed additional dose of pain medication. Patient in agreement with plan of care for transfer to tertiary care facility and was transferred via EMS. HPI <Meli Martinez NP - Last Filed: 06/10/22 15:12> General Mode of arrival: wheelchair . Date/Time Provider Initiated Documentation: 06/07/22 09:15 . Limitations to Documentation: physical limitation . Information obtained by: patient, family, RN notes reviewed and old records reviewed . HPI Narrative: 67-year-old male presents to the ER chief complaint of passing out, denies any chest pain he is shortness of breath. 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 It is pressing on nerves on the left side of his neck. He is agitated upon arrival, diaphoretic, pale and coughing up sputum. Related Data Home Medications Medication Instructions Recorded Confirmed acetylcysteine 600 mg capsule (NAC) 600 mg PO BID #60 caps 05/29/22 06/07/22 albuterol sulfate 2.5 mg/3 mL 2.5 mg (3 mL) inhalation Q4H PRN 05/29/22 06/07/22 (0.083 %) solution for nebulization #90 mL albuterol sulfate 90 mcg/actuation 2 puff inhalation PRN PRN 05/29/22 06/07/22 aerosol inhaler shortness of breath or wheezing #6.7 grams fluticasone propionate 115 2 puff inhalation BID #12 grams 05/29/22 06/07/22 mcg-salmeterol 21 mcg/actuation HFA inhaler (Advair HFA) ibuprofen 125 mg-acetaminophen 250 2 tab PO HS PRN 05/29/22 06/07/22 mg tablet (Advil Dual Action) prednisone 20 mg tablet 40 mg PO DAILY #8 tabs 05/29/22 06/07/22 tiotropium bromide 2.5 2 puff inhalation DAILY 05/29/22 06/07/22 mcg/actuation mist for inhalation (Spiriva Respimat) Previous Rx's Medication Instructions Recorded acetylcysteine 600 mg capsule (NAC) 600 mg PO BID #60 caps 05/29/22 albuterol sulfate 2.5 mg/3 mL 2.5 mg (3 mL) inhalation Q4H PRN 05/29/22 (0.083 %) solution for nebulization #90 mL albuterol sulfate 90 mcg/actuation 2 puff inhalation PRN PRN 05/29/22 aerosol inhaler shortness of breath or wheezing #6.7 grams fluticasone propionate 115 2 puff inhalation BID #12 grams 05/29/22 mcg-salmeterol 21 mcg/actuation HFA inhaler (Advair HFA) prednisone 20 mg tablet 40 mg PO DAILY #8 tabs 05/29/22 Allergies Allergy/AdvReac Type Severity Reaction Status Date / Time Penicillins Allergy Severe Hives Unverified 06/07/22 10:02 codeine AdvReac Mild Nausea Unverified 06/07/22 10:02 tramadol AdvReac Nausea Unverified 06/07/22 10:02 General Stated Complaint: [id number] SHARON: 2 Review of Systems <Meli Martinez NP - Last Filed: 06/10/22 15:12> All systems reviewed & are unremarkable except as noted in HPI and below Constitutional Constitutional: Denies fever(s) and Reports frequent falls ENT Ears, Nose, Mouth, and Throat: Reports as per HPI, Reports dizziness, Reports neck mass, Reports neck pain and Reports other (Difficulty handling secretions) Cardiovascular Cardiovascular: Reports as per HPI, Denies chest pain, Reports syncope, Reports lightheadedness and Reports dyspnea on exertion Respiratory Respiratory: Reports dyspnea on exertion Musculoskeletal Musculoskeletal: Reports neck pain Neurologic Neurologic: Reports dizziness, Reports syncope and Reports frequent falls PFSH <Meli Martinez NP - Last Filed: 06/10/22 15:12> All Active Problems (Updated 06/07/22 @ 19:39 by Rey Savage NP) Mass of neck (Acute) COPD exacerbation (Acute) Syncope (Chronic) Syncope and collapse (Acute) Unresponsive episode (Acute) Personal history of nicotine dependence (Acute) 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) Bullae (Acute) Cervical adenopathy (Acute) Nasal polyps (Acute) Mass of neck (Acute) Chronic obstructive pulmonary disease (Chronic) Postop check (Acute) Strangulated femoral hernia (Acute) Medical History Neck fracture Tobacco abuse Surgical History H/O thumb surgery History of laryngoscopy History of left inguinal hernia repair Social History Smoking/Tobacco Use Status: Former Tobacco Use tobacco type: cigarettes Quit Date: 03/25/22 Quit status: considering quitting Second Hand Exposure: Yes Smoking risk assessment performed?: Yes Alcohol Intake: current Alcohol Intake frequency: a few times a week Alcohol type: beer Drug use: Occasionally Substance use type: marijuana Housing: house Do you need help understanding health information?: Rarely Sexually active: Yes Do you think of yourself as: straight/heterosexual Current gender identity: male What is your relationship status?: living with partner Panel score (0-1 are the most socially isolated patients): 1 Urvashi/Zoroastrian: No preference Seatbelt use: always Drive intox or ride w/intox laundry route driver: No Do you feel safe at home: Yes Do you feel safe in your relationship?: Yes Exam <Meli Martinez NP - Last Filed: 06/10/22 15:12> Narrative Exam Narrative: Constitutional: Alert and oriented x3. Appears stated age. Normal body habitus. Very agitated upon arrival, pale diaphoretic, coughing and spitting up sputum. Head: Normocephalic, no trauma. Eyes: Pupils PERRL, Red reflex noted, EOM's intact. Eyelids symmetrical without lesions, discharge, or swelling. ENT: Large mass to the left side of his neck, uvula is midline, tonsils are 2+ bilaterally, Chest: RRR, Normal S1, S2, distal pulses intact. Hypertensive upon arrival. Resp: Lungs clear to auscultation bilaterally, no wheezes, rales, or rhonchi. No stridor auscultated. Abdomen: Soft, non-distended, Normoactive bowel sounds all 4 quads. Musculoskeletal: Unable to assess gait 5/5 strength to all four extremities. Skin: No suspicious rashes or lesions. Capillary refill less than 2 sec. Neurologic: Cranial nerves II-XII intact. Alert and oriented x 3. Motor: No deficits noted. Sensory: Intact bilaterally all 4 extremities. Hematologic/Lymphatic: No ecchymosis, Course <Meli Martinez NP - Last Filed: 06/10/22 15:12> Vital Signs Vital signs: Vital Signs Pulse 71 06/07/22 09:29 Respiratory Rate 27 H 06/07/22 09:29 Pulse Oximetry 95 06/07/22 09:29 Pulse 71 06/07/22 09:29 Respiratory Rate 27 H 06/07/22 09:29 Blood Pressure Position Supine 06/07/22 09:29 Pulse Oximetry 95 06/07/22 09:29 Oxygen Delivery Method Room Air 06/07/22 09:29 Oxygen Flow Rate 0 06/07/22 09:29 Sign Out <Meli Martinez NP - Last Filed: 06/10/22 15:12> Sign Out Data: Sign Out Comment: Pending transfer to [facility], and consult with ENT, and Oncology. Last updated by Meli Martinez NP at 06/07/22 16:35
--- NOTE | 2022-06-07 10:00 | DI.CT_ITS ---
Exam(s) CT HEAD NECK W EXAM: CT HEAD NECK W CLINICAL HISTORY: Left side epiglottal mass, Trouble swallowing. TECHNIQUE: Imaging Protocol: Axial computed tomography images with coronal and sagittal reformatted images were created and reviewed. CONTRAST MATERIAL: Intravenous: Omnipaque 350 contrast volume:100 mL COMPARISON: CT CT NECK W from 03/20/[address] NECK W from 05/29/2022 FINDINGS: CT head with and without: Ventricles and Extra axial spaces: Normal in size and morphology for the patient's age. Hemorrhage: None. Cerebral parenchyma: Normal. Enhancement: No suspicious enhancement. [place] of [place]: Unremarkable. Midline shift: None. Brainstem/Cerebellum: Normal. Calvarium: Normal. Visualized Paranasal sinuses/Mastoids: Clear. CT scan of the neck: Nasopharynx: Within normal limits. Oropharynx: Within normal limits. Hypopharynx: Please see below under soft tissues. Larynx: Within normal limits. Retropharyngeal space: Within normal limits. Parotids/submandibular: Submandibular gland and right parotid gland are unremarkable. Please see be low under soft tissues. Thyroid gland: Within normal limits. Lymphadenopathy: There is scattered lymph nodes seen along the level one to level three all measurin g less than 8 mm in short axis diameter which are physiologic in nature. Trachea: Within normal limits. Lung apices: Emphysematous changes are seen in the lung apices. Incidental note is made of an azygo s lobe which is a normal variant. Bones: Within normal limits for the patient's age. Carotids/Jugular: Within normal limits. Soft tissues: There has been interval increase in size of the soft tissue mass involving the left ne ck. The mass measures at least 7.8 x 6.8 x 9.8 cm. There is increased involvement of the parapharyn geal soft tissues and the tonsillar tissue on the left. There are necrotic areas seen within the mas s particularly inferiorly. The parotid gland is now largely indistinguishable from the mass. Enlarg ed left cervical and left supraclavicular lymph nodes are seen. There is mild narrowing of the airwa y at the level of the uvula. Branches of the left external carotid artery are not visualized. IMPRESSION: 1. Interval increase in size of the left neck mass since 03/20/2022. There has been interval increase in the involvement of the parapharyngeal soft tissues and hypopharynx. There is mild narrowing of t he airway at the level of the uvula. 2. No acute intracranial process. No intracranial enhancement to suggest metastases. 3. Findings were discussed with Meli Martinez on 06/07/2022. RADIATION DOSE DELIVERED: 1,981.92mGy.cm Total DLP DATA REPOSITORY: All CT scans at this facility are submitted to the National Radiology Data Registry (NRDR) Dose Index Registry (DIR) with the [employer] ([employer]). RADIATION OPTIMIZATION: All CT scans at this facility use at least one of these dose optimization te chniques: automated exposure control; mA and/or kV adjustment per patient size (includes targeted exa ms where dose is matched to clinical indication); or iterative reconstruction.
[2022-06-07] MEDS: EPINEPHrine 10 MG/10 ML ML 5 MG UPD (10:03)
[2022-06-07 10:06] LABS: ALT 50 U/L (16-63); AST 29 U/L (15-37); Albumin 3.7 g/dL (3.4-5.0); Alkaline Phosphatase 83 U/L (46-116); Anion Gap 8.3 mmol/L (3-11); BUN 26 mg/dL (7-18); Bilirubin, Total 0.8 mg/dL (0.2-1.0); CO2 28.7 mmol/L (21.0-32.0); CREATININE 1.4 mg/dL (0.70-1.30); Chloride 99 mmol/L (98-107); Estimated GFR 55.43 (mL/min/1.73m2); Glucose 125 mg/dL (74-106); Magnesium 2.3 mg/dL (1.8-2.4); Potassium 4.4 mmol/L (3.5-5.1); Sodium 136 mmol/L (136-145); Total Protein 8.2 g/dL (6.4-8.2); Troponin I < 50 ng/L (<or=60)
--- NOTE | 2022-06-07 10:15 | DI.RAD_ITS ---
Exam(s) XR CHEST 2V PA LATERAL EXAM: XR CHEST 2V PA LATERAL CLINICAL HISTORY: Cough, R/O Pneumonia, mass TECHNIQUE: 2D digital imaging was performed of the chest. Two images were obtained. PA and lateral views were obtained. COMPARISON: CR CHEST 2 VIEWS PA,LAT from 07/24/2016 FINDINGS: MEDIASTINUM: Normal. HEART: Normal. PULMONARY VASCULATURE: Normal. LUNGS: No focal consolidating infiltrates. There is underlying COPD. Parenchymal scarring is presen t. PLEURAL SPACE: No pleural effusion or pneumothorax. BONE:Within normal limits for the patient's age. OTHER FINDINGS:Normal. IMPRESSION: No acute pulmonary findings. DATA REPOSITORY: RADIATION DOSE DELIVERED:
[2022-06-07] MEDS: Omnipaque 350 MG/ML 100 ML BTL IJ (11:59)
[2022-06-07] MEDS: Normal Saline - Diluent 50 ML VIAL IJ (12:01)
[2022-06-07] MEDS: Normal Saline Flush 10 ML SYR IVP (12:01)
[2022-06-07] MEDS: fentaNYL 100 MCG/2 ML VIAL 25 MCG IVP (12:22)
[2022-06-07 13:45] LABS: COVID-19 PCR Negative (Negative); Influenza A PCR Negative (Negative); Influenza B PCR Negative (Negative); RSV PCR Negative (Negative)
[2022-06-07] MEDS: Normal Saline 1,000 ML 125 ML IV (15:02)
[2022-06-07] MEDS: HYDROmorphone 2 MG/ML SYR 0.5 MG IVP (20:37)
== END 2022-06-07 20:46 | disposition short-term general hospital (02) ==
PROVIDERS: Registered Nurse Emergency; Emergency Provider Nurse Practitioner Family; PCP Nurse Practitioner Family
DX: R55 Syncope and collapse (principal); R22.1 Localized swelling, mass and lump, neck; Z20.822 Contact with and (suspected) exposure to COVID-19
CPT/HCPCS: 36415; 70491; 80053; 87637; 93005; 96361; 96374; 96375; 96376; 99285; 70460; 71046; 83735; 84484; 85025; 93010; J1100; J1170; J2405; J3010; J3490; J7620